=== PATIENT | male | born 1975 | race American Indian/Alaskan Native ===

== ENCOUNTER 2018-05-26 03:36 | Emergency (ER) | payer MEDICAID ==
[2018-05-26 03:55] VITALS: BMI 71.2
--- NOTE | 2018-05-26 04:06 | ED PDOC ---
Arrival/HPI - General Chief Complaint: Lower Extremity Problem/Injury Time Seen by Provider: 05/26/18 03:41 Historian: Patient - History of Present Illness Narrative History of Present Illness (Text): 05/26/18 04:04 Kale Krueger is a 43 year old male, whose past medical history includes hypertension, who presents to the emergency department complaining of bilateral lower extremity swelling for the past few days. Patient states he was previously admitted to [facility] for similar complaint. Patient states he is supposed to take Lasix regularly, but has not taken it in approximately 2 weeks. Patient denies any fever, chills, chest pain, shortness of breath, abdominal pain, nausea, vomiting, diarrhea, urinary symptoms, back pain, neck pain, headache, dizziness, or any other complaints. Symptom Onset: Gradual Symptom Course: Unchanged Activities at Onset: Light Context: Home Past Medical History - Provider Review Nursing Documentation Reviewed: Yes - Cardiac Hx Hypertension: Yes - Pulmonary Hx Bronchitis: Yes Hx Pneumonia: Yes - Psychiatric Hx Anxiety: Yes Hx Depression: Yes Hx Substance Use: Yes (marijuana) Other/Comment: paranoia - Anesthesia Hx Anesthesia: No Hx Anesthesia Reactions: No Hx Malignant Hyperthermia: No Family/Social History - Physician Review Nursing Documentation Reviewed: Yes Family/Social History: Unknown Family HX Smoking Status: Heavy Smoker > 10 Cigarettes Daily Hx Alcohol Use: Yes Frequency of alcohol use: Socially Hx Substance Use: Yes (marijuana) Allergies/Home Meds Allergies/Adverse Reactions: Allergies No Known Allergies Allergy (Verified 05/11/18 02:22) Home Medications: Home Meds Medication Instructions Recorded Confirmed Aspirin 81 mg PO DAILY 01/21/18 05/20/18 Review of Systems - Physician Review All systems were reviewed & negative as marked: Yes - Review of Systems Constitutional: Normal. absent: Fevers Eyes: Normal ENT: Normal Respiratory: Normal. absent: SOB, Cough Cardiovascular: Normal. absent: Chest Pain Gastrointestinal: Normal. absent: Abdominal Pain, Diarrhea, Nausea, Vomiting Genitourinary Male: Normal. absent: Dysuria, Hematuria, Urinary Output Changes Musculoskeletal: Other (+bilateral lower extremity swelling). absent: Back Pain , Neck Pain Skin: Normal. absent: Rash Neurological: Normal. absent: Headache, Dizziness Endocrine: Normal Hemo/Lymphatic: Normal Psychiatric: Normal Physical Exam Vital Signs Reviewed: Yes Vital Signs Temp Pulse Resp BP Pulse Ox 05/26/18 06:17 98.7 F 95 H 18 128/79 100 05/26/18 04:00 98.7 F 92 H 18 137/79 100 Temperature: Afebrile Blood Pressure: Normal Pulse: Regular Respiratory Rate: Normal Appearance: Positive for: Well-Appearing, Non-Toxic, Comfortable Pain Distress: None Mental Status: Positive for: Alert and Oriented X 3 - Systems Exam Head: Present: Atraumatic, Normocephalic Pupils: Present: PERRL Extroacular Muscles: Present: EOMI Conjunctiva: Present: Normal Mouth: Present: Moist Mucous Membranes Neck: Present: Normal Range of Motion Respiratory/Chest: Present: Clear to Auscultation, Good Air Exchange. No: Respiratory Distress, Accessory Muscle Use Cardiovascular: Present: Regular Rate and Rhythm, Normal S1, S2. No: Murmurs Abdomen: No: Tenderness, Distention, Peritoneal Signs Back: Present: Normal Inspection Upper Extremity: Present: Normal Inspection. No: Cyanosis, Edema Lower Extremity: Present: Swelling (Bilateral lower extremity swelling). No: Edema Neurological: Present: GCS=15, CN II-XII Intact, Speech Normal Skin: Present: Warm, Dry, Normal Color. No: Rashes Psychiatric: Present: Alert, Oriented x 3, Normal Insight, Normal Concentration Medical Decision Making ED Course and Treatment: 05/26/18 04:04 Impression: 43 year old male complaining of bilateral lower extremity swelling. Plan: -- EKG -- Chest X-Ray -- US Duplex Lower Extremities -- Labs, alcohol level -- Reassess and disposition Prior Visits: Notes and results from previous visits were reviewed. Progress Notes: 05/26/18 05:02 Reviewed EKG, NSR at [address]-segment elevations or depressions, no T-wave inversions, normal intervals. 05/26/18 05:26 Chest X-Ray reviewed, shows no acute processes. 05/26/18 05:37 US Duplex Lower Extremities, limited study, negative for DVT. 05/26/18 05:58 On reevaluation the patient feels better and is in no acute distress. I have discussed the results and plan with the patient, who expresses understanding. Patient given the opportunity to ask question, all questions were answered and there is agreement with the plan to discharge the patient home. Patient is stable for discharge. Patient was instructed to follow up with physician/clinic in 1-2 days or return if symptoms persist/worsen or new concerning symptoms arise.. - Lab Interpretations Lab Results: 05/26/18 04:42 05/26/18 04:42 Lab Results 05/26/18 04:42: Alcohol, Quantitative < 10 05/26/18 04:42: Sodium 143, Potassium 3.9, Chloride 104, Carbon Dioxide 30, Anion Gap 13, BUN 10, Creatinine 0.9, Est GFR ( Amer) > 60, Est GFR (Non- Af Amer) > 60, Random Glucose 104, Calcium 8.2 L, Total Bilirubin 0.2, AST 24, ALT 31, Alkaline Phosphatase 136 H, Total Protein 6.7, Albumin 3.5, Globulin 3.2 , Albumin/Globulin Ratio 1.1 05/26/18 04:42: PT 12.2, INR 1.07, APTT 32.8 05/26/18 04:42: WBC 7.9, RBC 4.51, Hgb 11.8 L, Hct 35.8 L, MCV 79.4 L, MCH 26.2 , MCHC 33.0, RDW 15.5 H, Plt Count 301, MPV 9.3, Gran % 62.9, Lymph % (Auto) 27.1, [place] % (Auto) 7.6 H, Eos % (Auto) 2.1, Baso % (Auto) 0.3, Gran # 5.00, Lymph # (Auto) 2.2, [place] # (Auto) 0.6, Eos # (Auto) 0.2, Baso # (Auto) 0.02 I have reviewed the lab results: Yes - RAD Interpretation Radiology Orders: 05/26/18 04:06 CHEST PORTABLE [RAD] Stat DUPLEX LOWER EXTRM VEIN BILAT [US] Stat Pin Setter: ED Physician - EKG Interpretation Interpreted by ED Physician: Yes Type: 12 lead EKG - Scribe Statement The provider has reviewed the documentation as recorded by the Hazel Rodriguez Provider Scribe Attestation: All medical record entries made by the Scribe were at my direction and personally dictated by me. I have reviewed the chart and agree that the record accurately reflects my personal performance of the history, physical exam, medical decision making, and the department course for this patient. I have also personally directed, reviewed, and agree with the discharge instructions and disposition. Disposition/Present on Arrival - Present on Arrival Any Indicators Present on Arrival: No History of DVT/PE: No History of Uncontrolled Diabetes: No Urinary Catheter: No History of Decub. Ulcer: No History Surgical Site Infection Following: None - Disposition Have Diagnosis and Disposition been Completed?: Yes Diagnosis: Lower leg edema Disposition: HOME/ ROUTINE Disposition Time: 05:58 Condition: GOOD Discharge Instructions (ExitCare): Dependent Edema (DC) Additional Instructions: take your medicine as directed Referrals: Raquel Myles MD [Medical Doctor] - Follow up with primary Forms: [employer] (Yi)
[2018-05-26 05:15] LABS: BASO # 0.02 K/mm3 (0.0-2.0); BASO % 0.3 % (0.0-3.0); EOS # 0.2 (0.0-0.7); EOS % 2.1 % (1.5-5.0); GRAN % 62.9 % (50.0-68.0); HEMOGLOBIN 11.8 g/dL (14.0-18.0); LYMPH # 2.2 (1.2-3.4); LYMPH % 27.1 % (22.0-35.0); MEAN CELL VOLUME 79.4 fl (80.0-105.0); MEAN CORPUSCULAR HEMOGLOBIN 26.2 pg (25.0-35.0); MEAN PLATELET VOLUME 9.3 fl (7.0-11.0); MONO # 0.6 (0.1-0.6); MONO % 7.6 % (1.0-6.0); RBC 4.51 10^6/uL (3.5-6.1); RED CELL DISTRIBUTION WIDTH 15.5 % (11.5-14.5); WHITE BLOOD COUNT 7.9 10^3/ul (4.5-11.0)
[2018-05-26 05:18] LABS: INR 1.07; PARTIAL THROMBOPLASTIN TIME 32.8 Seconds (25.1-36.5); PROTHROMBIN TIME 12.2 SECONDS (9.4-12.5)
[2018-05-26 05:20] LABS: ALB/GLOB RATIO 1.1 (1.1-1.8); ALBUMIN 3.5 g/dL (3.0-4.8); ALT/SGPT 31 U/L (7-56); AST/SGOT 24 U/L (17-59); BLOOD UREA NITROGEN 10 mg/dL (7-21); CALCIUM 8.2 mg/dL (8.4-10.5); GFR AFRICAN-AMERICAN > 60; GFR NON-AFRICAN AMERICAN > 60
[2018-05-26 07:49] VITALS: BP 128/79; PULSE 95; RESP 18; TEMP 98.7; O2SAT 100
--- NOTE | 2018-05-26 09:18 | RAD ---
Date of service: 05/26/2018 HISTORY: leg swelling COMPARISON: No prior. FINDINGS: LUNGS: Examination limited due to patient body habitus. Right basilar linear opacity likely subsegmental atelectasis. No acute infiltrate elsewhere. PLEURA: No significant pleural effusion identified, no pneumothorax apparent. CARDIOVASCULAR: Normal. OSSEOUS STRUCTURES: No significant abnormalities. VISUALIZED UPPER ABDOMEN: Normal. OTHER FINDINGS: None. IMPRESSION: Limited examination. Probable right basilar subsegmental atelectasis.
--- NOTE | 2018-05-26 10:08 | CARD ---
APPROVED REPORT Date of service: 05/26/2018 EKG Measurement Heart [id number] <Conclusion> Normal sinus rhythm Normal ECG
--- NOTE | 2018-05-26 11:15 | US ---
HISTORY: Leg pain and swelling. Evaluate for DVT PHYSICIAN(S): Chemo Lynn MD. TECHNIQUE: Duplex sonography and color-flow Doppler with graded compression were used to evaluate the deep venous systems of both lower extremities. Very limited study due to morbid obesity and edema. The lower femoral veins and tibial veins are not adequately seen. FINDINGS: The visualized deep venous systems of both lower extremities are sonographically normal and compressible. Normal wave forms and augmentation are seen. There is no sonographic evidence for deep venous thrombosis in the visualized segments of both lower extremities. IMPRESSION: No sonographic evidence for deep venous thrombosis in the visualized segments of both lower extremities. Very limited study.
== END 2018-05-26 06:17 | disposition home or self-care (01) ==
LOC: ED 03:36 → MERGE 03:36 → ED 06:17
DX: R60.0 Localized edema (principal); F17.210 Nicotine dependence, cigarettes, uncomplicated; I10 Essential (primary) hypertension